=== PATIENT | female | born 1975 | race Caucasian/White ===

== ENCOUNTER 2020-11-25 10:54 | Inpatient (IN) ==
[2020-11-25] MEDS ORDERED: 0.9 % Sodium Chloride 1,000 ML IVC ONE (11:12)
[2020-11-25] MEDS ORDERED: Ondansetron 4 MG/2 ML VIAL IVP ONE (11:12)
[2020-11-25] MEDS ORDERED: *HR* FentaNYL (PF) 100 MCG/2 ML VIAL IVP ONE (11:14)
[2020-11-25 11:23] LABS: Basophils % 0.3 %; Eosinophils % 0.1 %; Hematocrit 43.8 % (35.3-44.9); Hemoglobin 15.2 g/dL (11.5-15.4); Immature Granulocytes % 0.2 % (0-4); Lymphocytes # 0.8 K/mcL (0.6-4.6); Lymphocytes % 7.7 %; Mean Corpuscular HGB Conc 34.7 g/dL (31.6-35.5); Mean Corpuscular Hemoglobin 30.3 pg (28.0-33.3); Mean Corpuscular Volume 87.3 fL (83.0-100.0); Mean Platelet Volume 9.7 fL (9.4-12.4); Monocytes # 0.5 K/mcL (0.0-1.3); Monocytes % 4.8 %; Neutrophils # 8.8 K/mcL (1.6-8.9); Platelet Count 220 K/mcL (140-400); Red Blood Count 5.02 M/mcL (3.82-4.97); Red Cell Distribution Width 11.9 % (11.5-14.5); Segmented Neutrophils % 86.9 %; White Blood Count 10.1 K/mcL (4.3-11.1)
[2020-11-25 11:28] LABS: Prothrombin Time 11.9 Seconds (9.4-12.1)
[2020-11-25 11:31] LABS: Activated Partial Thrombo Time 23.6 Seconds (26.0-36.0)
[2020-11-25 11:43] LABS: Alanine Aminotransferase 7 Units/L (7-52); Albumin/Globulin Ratio 1.5 (1.1-2.2); Alkaline Phosphatase 41 Units/L (34-104); Aspartate Amino Transferase 10 Units/L (13-39); BUN/Creatinine Ratio 13 (6-26); Bilirubin,Direct 0.1 mg/dL (0.0-0.2); Bilirubin,Indirect 0.4 mg/dL (0.0-1.0); Bilirubin,Total 0.5 mg/dL (0.3-1.0); Blood Urea Nitrogen 10 mg/dL (6-20); Calcium 9.1 mg/dL (8.6-10.3); Carbon Dioxide 22 mEq/L (23-29); Chloride 104 mEq/L (98-107); Globulin 2.7 g/dL (2.4-3.5); Glucose 143 mg/dL (70-105); Lipase 14 Units/L (11-82); Osmolality,Calculated 280 (280-300); Potassium 3.9 mEq/L (3.5-5.1); Sodium 134 mEq/L (136-145); Total Protein 6.7 g/dL (6.4-8.9); eGFR For African Americans > 60 (> 60); eGFR For Non-African Americans > 60 (> 60)
[2020-11-25] MEDS ORDERED: *HR* HYDROmorphone (PF) 1 MG/ML SYRINGE IVP ONE (11:43)
[2020-11-25] MEDS ORDERED: Isovue-370 500 ML BOTTLE IVP ONE (11:47)
[2020-11-25] MEDS ORDERED: cefOXitin 2,000 MG in 0.9 % Sodium Chloride Mini Bag 100 ML IVPB ONE (13:10)
[2020-11-25 13:45] LABS: Bilirubin,Urine Negative (Negative); Blood,Urine Negative (Negative); Clarity,Urine Clear (Clear); Color,Urine Light-Yellow (Yellow); Glucose,Urine (UA) Normal (Normal); Ketones,Urine Negative (Negative); Leukocyte Esterase,Urine Negative (Negative); Nitrite,Urine Negative (Negative); PH,Urine 6.5 pH Units (5.0-8.0); Protein,Urine Negative (Neg-Trace); Specific Gravity,Urine > 1.030 (1.010-1.025); Urobilinogen,Urine Normal (Normal)
[2020-11-25] MEDS ORDERED: CefOXitin 1,000 MG VIAL ONE (13:55)
[2020-11-25] MEDS ORDERED: *HR* Rocuronium Bromide 50 MG/5 ML VIAL ONE (14:00)
[2020-11-25] MEDS ORDERED: Ondansetron 4 MG/2 ML VIAL ONE (14:00)
[2020-11-25] MEDS ORDERED: Lidocaine -MPF 2% 2 ML VIAL ONE (14:00)
[2020-11-25] MEDS ORDERED: *HR* Propofol 200 MG/20 ML VIAL IVP ONE (14:01)
[2020-11-25] MEDS ORDERED: *HR* FentaNYL (PF) 100 MCG/2 ML VIAL ONE (14:01)
[2020-11-25] MEDS ORDERED: *HR* Midazolam HCl 2 MG/2 ML VIAL ONE (14:01)
[2020-11-25] MEDS ORDERED: Lidocaine -MPF 4% 5 ML AMPUL ONE (14:05)
[2020-11-25] MEDS ORDERED: Lacri-Lube 3.5 GM TUBE ONE (14:39)
[2020-11-25] MEDS ORDERED: *HR* HYDROMORPHONE 2 MG/ML VIAL ONE (14:47)
[2020-11-25] MEDS ORDERED: *HR* Metoprolol 5 MG/5 ML VIAL IVP PRN (17:14)
[2020-11-25] MEDS ORDERED: Ondansetron 4 MG/2 ML VIAL IVP PRN (17:14)
[2020-11-25] MEDS: Piperacillin/Tazobactam 3.375 GM in 0.9 % Sodium Chloride Mini Bag 100 ML IVPB SCH (17:40)
[2020-11-25] MEDS: 0.9 % Sodium Chloride 1,000 ML IVC SCH (17:40)
[2020-11-25] MEDS: *HR* OxyCODONE/APAP 5/325 TABLET PO PRN (20:12)
[2020-11-26] MEDS: Piperacillin/Tazobactam 3.375 GM in 0.9 % Sodium Chloride Mini Bag 100 ML IVPB SCH ×4 (00:50→23:17)
[2020-11-26] MEDS: *HR* OxyCODONE/APAP 5/325 TABLET PO PRN ×3 (00:57→23:16)
[2020-11-26] MEDS ORDERED: Isovue-300 50ML VIAL ONE (07:50)
[2020-11-26] MEDS: 0.9 % Sodium Chloride 1,000 ML IVC SCH ×2 (09:12→22:04)
[2020-11-26] MEDS: Acetaminophen 325 MG TABLET PO PRN (23:16)
[2020-11-27] MEDS: *HR* OxyCODONE/APAP 5/325 TABLET PO PRN ×3 (04:17→19:42)
[2020-11-27] MEDS: Piperacillin/Tazobactam 3.375 GM in 0.9 % Sodium Chloride Mini Bag 100 ML IVPB SCH ×3 (08:33→23:26)
[2020-11-27] MEDS: 0.9 % Sodium Chloride 1,000 ML IVC SCH ×2 (11:15→23:25)
[2020-11-27] MEDS: Acetaminophen 325 MG TABLET PO PRN ×2 (11:16→21:45)
[2020-11-27 11:31] LABS: Hematocrit 37.1 % (35.3-44.9); Mean Corpuscular HGB Conc 33.4 g/dL (31.6-35.5); Mean Corpuscular Hemoglobin 29.9 pg (28.0-33.3); Mean Corpuscular Volume 89.4 fL (83.0-100.0); Mean Platelet Volume 9.9 fL (9.4-12.4); Platelet Count 171 K/mcL (140-400); Red Blood Count 4.15 M/mcL (3.82-4.97); Red Cell Distribution Width 12.4 % (11.5-14.5); White Blood Count 9.3 K/mcL (4.3-11.1)
[2020-11-27 11:33] LABS: Hemoglobin 12.4 g/dL (11.5-15.4)
[2020-11-27] MEDS: Ibuprofen 600 MG TABLET PO PRN (23:21)
[2020-11-28] MEDS: *HR* OxyCODONE/APAP 5/325 TABLET PO PRN ×2 (04:26→12:37)
[2020-11-28] MEDS: Piperacillin/Tazobactam 3.375 GM in 0.9 % Sodium Chloride Mini Bag 100 ML IVPB SCH ×2 (07:40→17:18)
[2020-11-28] MEDS: 0.9 % Sodium Chloride 1,000 ML IVC SCH (17:19)
[2020-11-28] MEDS: Ibuprofen 600 MG TABLET PO PRN (17:20)
[2020-11-28] MEDS: Acetaminophen 325 MG TABLET PO PRN (20:35)
[2020-11-29] MEDS: Piperacillin/Tazobactam 3.375 GM in 0.9 % Sodium Chloride Mini Bag 100 ML IVPB SCH ×3 (00:35→16:20)
[2020-11-29] MEDS: 0.9 % Sodium Chloride 1,000 ML IVC SCH (05:59)
[2020-11-29] MEDS: Ibuprofen 600 MG TABLET PO PRN (11:55)
[2020-11-30] MEDS: Piperacillin/Tazobactam 3.375 GM in 0.9 % Sodium Chloride Mini Bag 100 ML IVPB SCH (01:48)
[2020-11-30 08:08] VITALS: BP 135/79
== END 2020-11-30 11:25 | disposition home or self-care (01) ==
LOC: 3ANU 10:54 → EMEROOARM 10:54 → 3ANU 14:15
PROVIDERS: ADMIT Surgery; ATTEND Surgery